=== PATIENT | female | born 1960 | race Caucasian/White ===

== ENCOUNTER → 2017-11-03 | Outpatient (CLI) | payer OTHER ==
[~2017-11-03] MED LIST: ALPR0.5T3 PO; ATEN50TA PO; CYCL10TA PO; ENAL20TA PO; ENBR50IN2 SQ; HYDR-3583 PO; HYDR25TA5 PO; HYOS1TAB9 PO; MELO15TA20 PO; METH2.5T PO; OXYC1TAB36 PO; PANT40TA3 PO; PRED20 PO; PRED5TAB PO; TEMA30CA PO; TRAM50TA PO; WALKER WHEELS/F1 MIS
== END ==
LOC: CPRE 10:01
PROVIDERS: ATTEND Neurological Surgery
DX: Z01.812 Encounter for preprocedural laboratory examination (principal); M43.10 Spondylolisthesis, site unspecified
CPT/HCPCS: 87640; 87641

== ENCOUNTER 2017-11-05 06:41 | Inpatient (IN) | payer OTHER ==
[~2017-11-05] VITALS: Ht 170.2 cm; Wt 103.6 kg
[~2017-11-05 06:41] MED LIST changes: -HYDR-3583 PO; -PRED5TAB PO; -WALKER WHEELS/F1 MIS
[2017-11-05] MEDS ORDERED: VANCOMYCIN HCL 1000 MG VIAL ONE (07:07)
[2017-11-05] MEDS ORDERED: GELFOAM SIZE 100 ONE (07:08)
[2017-11-05] MEDS ORDERED: BUPIVACAINE/EPINEPHRINE 0.5% PF 10 ML VIAL ONE (07:08)
[2017-11-05] MEDS ORDERED: GENTAMICIN SULFATE 80 MG/2 ML VIAL ONE (07:08)
[2017-11-05] MEDS ORDERED: THROMBIN (TOPICAL) 5,000 UNIT VIAL ONE (07:08)
[2017-11-05] MEDS ORDERED: ceFAZolin 2 GM PREMIX 50 ML ONE (07:08)
[2017-11-05] MEDS ORDERED: METOPROLOL TARTRATE 25 MG TAB PO PRN (07:15)
[2017-11-05] MEDS ORDERED: POVIDONE IODINE 5% (ANTISEPSIS KIT) 4 APPLICATIONS EACH NARE PRN (07:15)
[2017-11-05] MEDS ORDERED: LACTATED RINGER'S 1000 ML IV PRN (07:15)
[2017-11-05] MEDS ORDERED: SODIUM CHLORID 0.9% 500 ML IV PRN (07:15)
[2017-11-05] MEDS ORDERED: CHLORHEXIDINE GLUCONATE 2 % 1 PACK (2 CLOTHS) TOPICAL PRN (07:15)
[2017-11-05] MEDS ORDERED: VANCOMYCIN 1 GM/200 ML PREMIX ON-CALL IV SCH (07:15)
[2017-11-05] MEDS ORDERED: ACETAMINOPHEN 1000 MG/100 ML 100 ML IV ONE (07:28)
[2017-11-05] MEDS ORDERED: PROPOFOL 500 MG/50 ML INJ 150 ML ONE ×2 (07:29→11:12)
[2017-11-05] MEDS ORDERED: ARTIFICIAL TEARS OPTH OINT 3.5 APPLIC/3.5 GM TUBO ONE (07:29)
[2017-11-05] MEDS ORDERED: ATEN50TA PO (07:33)
[2017-11-05] MEDS ORDERED: APREPITANT 40 MG CAP ONE (07:50)
[2017-11-05] MEDS ORDERED: FAMOTIDINE 20 MG/2 ML VIAL ONE (07:50)
[2017-11-05] MEDS ORDERED: KETAMINE HCL 500 MG/10 ML VIAL ONE (08:05)
[2017-11-05] MEDS ORDERED: MIDAZOLAM HCL 2 MG/2 ML VIAL ONE ×2 (08:37→13:49)
[2017-11-05] MEDS ORDERED: methylPREDNISolone SOD SUCC 125 MG/2 ML VIAL ONE (09:26)
[2017-11-05] MEDS ORDERED: fentaNYL CITRATE 250 MCG/5 ML AMP ONE (11:11)
[2017-11-05] MEDS ORDERED: HYDROmorphone HCL PF 2 MG/ML VIAL ONE (11:19)
[2017-11-05] MEDS ORDERED: PROPOFOL 200 MG/20 ML AMP IV ONE (12:00)
[2017-11-05] MEDS ORDERED: ONDANSETRON HCL 4 MG/2 ML VIAL IV PUSH ONE (12:00)
[2017-11-05] MEDS ORDERED: ROCURONIUM INJ 50 MG/5 ML SYRINGE IV PUSH ONE (12:00)
[2017-11-05] MEDS ORDERED: LIDOCAINE HCL 1% PF 5 ML SYRINGE OTHER ONE (12:00)
[2017-11-05] MEDS ORDERED: ePHEDrine/NS 25 MG/5 ML SYRINGE IV ONE (12:00)
[2017-11-05] MEDS ORDERED: PHENYLEPH/NS 1000 MCG/10 ML SYR IV ONE (12:00)
[2017-11-05] MEDS ORDERED: LACTATED RINGER'S 1000 ML INJ 3,000 ML IV ONE (12:00)
[2017-11-05] MEDS ORDERED: GLYCOPYRROLATE 1 MG/5 ML SYRINGE IV PUSH ONE (12:00)
[2017-11-05] MEDS ORDERED: ALPRAZolam 0.5 MG TAB PO PRN (12:45)
[2017-11-05] MEDS ORDERED: DEXTROSE 50% IN WATER 50 ML VIAL(D50) IV PUSH PRN (12:45)
[2017-11-05] MEDS ORDERED: diphenhydrAMINE HCL 50 MG/ML VIAL IV PUSH PRN (12:45)
[2017-11-05] MEDS ORDERED: RESP: ALBUTEROL 2.5 MG/3 ML NEB (PRN) INH (12:45)
[2017-11-05] MEDS ORDERED: GLUCAGON 1 MG/ML VIAL OTHER PRN (12:45)
[2017-11-05] MEDS ORDERED: cloNIDine HCL 0.1 MG TAB PO/NG PRN (12:45)
[2017-11-05] MEDS ORDERED: ACETAMINOPHEN 325 MG TAB PO PRN (12:45)
[2017-11-05] MEDS ORDERED: MAGNESIUM HYDROXIDE SUSP 30 ML CUP PO PRN (12:45)
[2017-11-05] MEDS ORDERED: MORPHINE SULFATE 4 MG/ML INJ IV PUSH PRN (12:45)
[2017-11-05] MEDS ORDERED: MENTHOL LOZENGE BUCCAL PRN (12:45)
[2017-11-05] MEDS ORDERED: BISACODYL 10 MG SUPP RECTAL PRN (12:45)
[2017-11-05] MEDS ORDERED: NALOXONE HCL 0.4 MG/ML AMP IV PUSH PRN (12:45)
[2017-11-05] MEDS ORDERED: DO NOT ADM ANY ANTICOAGULANT DRUGS PRN (13:09)
[2017-11-05] MEDS ORDERED: *morphine SULFATE 4 MG/ML PERIprocedure ONLY ONE ×2 (13:40→13:46)
--- NOTE | 2017-11-05 13:52 | PD.OP ---
Operative Report Date of Surgery: November 05, 2017 Preoperative Diagnosis: L4-5 spondylolisthesis Postoperative Diagnosis: L4-5 spondylolisthesis Procedure: L4-5 laminectomy, interbody arthrodhesis using PEEK cage and autologous bone graft, L4-5 instrumental fixation using transpedicular screws and rods, L4-5 posterolateral fusion using autologous bone graft and rods. Microsurgical dissection Anesthesia: general Surgeon: Favio Lopez Wireless Technician(s): Ana Rueda Operation and Findings: INDICATIONS FOR THE SURGICAL PROCEDURE Ms Linder is a 57 year-old female who presented with intractable mechanical back pain and luz evidence of L5 lower extremity radiculopathy. She failed maximum nonsurgical management including multiple modalities of conservative treatment as well as pain management interventions by an interventional pain specialist. A surgical decompression and arthrodhesis were indicated as a last resort. The [id number] details of the procedure, indications, alternatives, risks and potential complications were fully discussed with the patient. The patient fully understood. All the questions were answered. No guarantees were given. The patient voiced requesting the procedure and provided informed consents. The patient was offered the alternative of delaying the procedure and continuing with nonsurgical management. DETAILS OF THE SURGICAL PROCEDURE Prior to the procedure, the surgical incision was marked in the preoperative surgical holding room, and the procedure, risks, and potential complications revisited with the patient. Placement of electrodes for intraoperative neurophysiological monitoring was completed. The patient was taken to the operative room, and following induction of general anesthesia, endotracheal intubation was performed. A Chaudhry catheter, bilateral ADITYA hose and sequential compression devices were placed and kept throughout the procedure. The patient was positioned prone, over a Christian table over a Gerardo frame. All pressure in the preoperative surgical holding room points were carefully padded with eggcrate and gel mattress. The eyes were tapped shut after ointment was applied by the anesthesiologist to prevent corneal abrasion. A Jesus Manuel hugger was placed over the exposed lower body to maintain control of the core body temperature. The electrophysiological team placed the needles and electrodes in their proper location and baseline SSEP's and motor evoked potentials were registered prior and following the positioning. The entrance to each pedicles was marked using a C arm. The lumbar region was prepped and draped in the usual sterile fashion. The surgical procedure was performed in several steps as follow: SURGICAL APPROACH Once the patient was positioned, a localizing cross-table lateral x-ray was performed with a C-arm. Two paramedian small incisions were outlined on the skin approximately 3cm from the midline. The skin incisions were made with a # 10 blade. Small bleeders were controlled with the cautery. The dissection was then carried out into deper planes and through the thoracolumbar fascia with a Bovie. The intermuscular septum was identified and the muscles were blunted dissected along the septum. The facets and transverse process of L4 and L5 were exposed and the proper anatomical landmarks were identified. A microsurgical self-retaining retractor was placed on the incision, and a localizing lateralizing cross-table x-ray was performed with an instrument underneath a lamina of the lumbar spine. There was a bilateral pars defect with gross instability of the bony structures. INSTRUMENTAL FIXATION At this point in the procedure, placement of bilateral transpedicular screws was necessary for stabilization of the spine. Initially, the entry point for the screw was selected anatomically at the junction of the facet, with the transverse process, and the pars interarticularis at L5 and at the sacrum. This was started with a Giamshetti needle, followed by the use of an dunlap wire, and then a tap was used to create the threads for the screws. Finally bilateral transpedicular screws were carefully placed bilaterally at L4 and L5 under fluoroscopic visualization. An appropriate purchase was achieved with all screws. The position of each screw was assessed anatomically with an AP, lateral , oblique Xrays. An intraoperative scan view of the spine was then performed using the iso-centric c-arm. Each screw was then assessed electrophysiologically with a nerve stimulator. SURGICAL DECOMPRESSION There was significant mass effect with compression of the neural structures. In order to relieve neural compression, it was necessary to perform a decompressive laminectomy, with decompression of the spinal canal and bilateral lateral recesses. Note that the scope of such decompression was significantly more extensive than the minimal exposure necessary to perform an interbody fusion, as there was extreme facet arthropathy with near complete collapse of the disk spaces and severe stenosis cause by the hyperthrophic joint facets. At this point of the procedure the operative microscope was draped in the usual sterile fashion and brought to the field. The rest of the surgical procedure was performed using microdissection technique with the exception of the closure. Under the operating microscope, a decompressive laminectomy was carried out at L4-5 as follow: The laminae, base of the spinous processes and facets were carefully drilled exposing the ligamentum flavum. The facets were abnormal with severe facet arthropathy, vacuum facets, and mass effect over the neural structures. A broad disk protusion was contributing to compression of the neural structures and exiting L5 nerve root. A near complete facetectomy was necessary resulting in further mechanical instability. The ligamentum flavum appeared hypertrophic, resulting on mass effect on the dorsal surface of the neural structures. The superior free border of the ligamentum flavum was elevated with a ligament dissector and the ligamentum flavum was removed with a 3 and 4 mm Kerrison forceps. The ligament was very adherent to the dural sac and during the dissection, ans extreme care was taken during the dissection. The exiting nerve roots were identified, and a wide foraminotomy was performed with a Kerrison in their trajectory towards the neural foramenat both levels. Epidural veins located laterally to the dural sac were coagulated with the bipolar cautery, and then incised using microscissors. Gentle medial retraction of the dural sac allowed me to expose the disc space for the discectomy. Upon completion of the discectomy, an excellent decompression of the neural structures was achieved. INTERBODY ARTHRODHESIS In order to correct the narrowing of the disk space and maintain distraction of the space, and to achieve a solid interbody fusion, it was necessary the insertion of an interbody device into the disk space. Otherwise, the disk space would collapse, compromising the result of the surgical procedure. At this point of the procedure, the annulus fibrosus of the disk was carefully coagulated with a bipolar cautery and incised using an 11 bladed knife. Then, a microdiscectomy was carried out in a standard fashion using a combination of straight and up-biting pituitary forceps. A reverse angle curette was applied underneath the posterior longitudinal ligament, and used to push the disk fragments into the disk space, so they can be safely removed with a pituitary forceps. Once the discectomy was completed, it was necessary to decorticate the endplates, in order to eliminate the cartilaginous endplate and to expose healthy bone appropriate to perform the interbody fusion. The endplates at L4-5 were then thoroughly decorticated using increasing size bone sumeet and ring curets, eliminating the cartilaginous fragments from both, the superior and inferior endplates. A disk space distractor was applied to the pedicle screws and gentle distraction was applied. This maneuver was assisted by the use of a disk distractor. Once a thorough preparation of the disk space was achieved, the disk space was irrigated with antibiotic solution, and the interbody fusion was performed by carefully impacting expandable PPEK cage filled with autologous iliac crest bone graft. The cage was packed with further bone graft by the use of a funnel. A solid position of the cage with good purchase was achieved at both levels. The position of the cages were assessed anatomically with a probe and radiologically with the C-arm. POSTEROLATERAL FUSION The posterolateral fusion is a critical component to the procedure, to prevent future fatigue and failure of the instrumental fixation. Initially, the transverse processes of the vertebral bodies, lateral surface of the facets and the lateral gutters of the spine were carefully cleaned, eliminating all soft tissue and muscle attachments. The area was then irrigated with a large amount of antibiotic solution. Subsequently, the transverse processes, lateral surface of the facets, and lateral gutters of the spine were thoroughly decorticated using the TPS drill with a 5mm cutting karly, exposing cancellous bone, in preparation for the posterolateral fusion. The incision was again irrigated with antibiotic solution. Then, the posterolateral fusion was then performed by carefully packing the lateral gutters of the spine at L4-5 with autologous bone combined with demineralized bone matrix. I packed as much bone as possible. COMPLETION OF THE INSTRUMENTATION AND CLOSURE The rods were brought to the field, applied to all the screws, and the screw caps were sequentially applied. Compression was performed between the pedicle screws, and final tightening of the screws was completed using a torque wrench The incision was again thoroughly irrigated with several liters of antibiotic solution, and hemostasis secured with the bipolar cautery. A Valsalva Maneuver performed by the anesthesiologist failed to show any evidence of cerebrospinal fluid leak or bleeding. A 7 mm Christian-Anderson drain was left in the epidural space and externalized through a separate stab incision. The incision was then closed in planes. 0 Vicryl was used in an interrupted fashion to close the thoracolumbar fascia and the superficial fascia. The subcutaneous tissue was then approximated using 3-0 Vicryl in an interrupted fashion. Special care was taken to avoid space. The skin was then closed with 4-0 Vicryl in a running, subcuticular fashion. Dermabond was applied to the skin. Each plane of closure was irrigated with antibiotic solution. At the end of the procedure the sponge, needle and instrument counts were all correct. Estimated blood loss was 150 cc or less. No blood transfusion was given. The entire procedure was performed using continuous electrophysiological monitoring of the somatosensorial evoked potentials and EMG. The patient received prophylactic antibiotics. The patient was then extubated and transferred to the recovery room in stable condition. Favio Lopez MD November 05, 2017 13:52
[2017-11-05] MEDS: PCA - TOTAL MG DILAUDID DELIVERED PER SHIFT SCH ×2 (14:00→22:00)
[2017-11-05] MEDS: SODIUM CHLOR 0.9% 1000 ML INJ 1,000 ML IV SCH (14:00)
[2017-11-05] MEDS: HYDROmorphone HCL PCA 6 MG/30 ML IV SCH ×2 (14:14→20:29)
[2017-11-05 16:27] VITALS: BP 157/74; PULSE 85; RESP 17; TEMP 97.2; O2SAT 99
[2017-11-05] MEDS ORDERED: HYDR-3583 PO (16:47)
[2017-11-05 17:00] VITALS: BP 109/56; PULSE 91; RESP 18; TEMP 98.4; O2SAT 96
[2017-11-05] MEDS: INSULIN ASPART SUPPLEMENTAL SCALE SQ SCH ×2 (17:00→21:00)
[2017-11-05] MEDS: HYOSCYAMINE 0.125 MG TAB PO SCH ×2 (18:04→23:31)
[2017-11-05] MEDS: ceFAZolin 2 GM PREMIX 50 ML IV SCH (18:04)
--- NOTE | 2017-11-05 19:32 | RADRPT ---
EXAM DATE: 11/05/2017 6:22 PM EDT AGE/SEX: 57 years / Female INDICATIONS: Fusion L4,L5 with screw and cris placement. CLINICAL DATA: This is the patient's initial encounter. Patient reports that signs and symptoms have been present for 1 day and indicates a pain score of Nonresponsive. MEDICAL/SURGICAL HISTORY: None. None. COMPARISON: No prior [place] exams available for comparison. FINDINGS: There is transpedicular screw and cris fixation across L4-5 with drain present on the left. Disc space r present. Minimal anterolisthesis of L4 on L5. CONCLUSION: Lumbar fusion at L4-5 as above. Electronically signed by: Olivier Pitt MD 11/05/2017 7:30 PM EDT
[2017-11-05] MEDS: DOCUSATE SODIUM 100 MG CAP PO SCH (20:19)
[2017-11-05] MEDS: ATENOLOL 50 MG TAB PO SCH (20:19)
[2017-11-05] MEDS: ACETAMINOPHEN/HYDROcodone 325 MG/10 MG TAB PO PRN (23:32)
[2017-11-05] MEDS: CHLORHEXIDINE GLUCONATE 4% SOLN 120 ML BTL TOP SCH (23:43)
[2017-11-06] VITALS: BP 117/60; PULSE 89; RESP 18; TEMP 97.9; O2SAT 95
[2017-11-06] MEDS: ceFAZolin 2 GM PREMIX 50 ML IV SCH ×2 (00:12→09:50)
[2017-11-06] MEDS: TEMAZEPAM 15 MG CAP PO PRN (00:12)
[2017-11-06] MEDS: SODIUM CHLOR 0.9% 1000 ML INJ 1,000 ML IV SCH ×3 (01:18→23:58)
[2017-11-06 04:00] VITALS: BP 121/59; PULSE 84; RESP 20; TEMP 97.9; O2SAT 98
[2017-11-06] MEDS: HYDROmorphone HCL PCA 6 MG/30 ML IV SCH ×2 (04:39→18:00)
[2017-11-06] MEDS: PCA - TOTAL MG DILAUDID DELIVERED PER SHIFT SCH ×2 (06:00→14:00)
[2017-11-06] MEDS: HYOSCYAMINE 0.125 MG TAB PO SCH ×3 (06:28→17:06)
[2017-11-06] MEDS: ACETAMINOPHEN/HYDROcodone 325 MG/10 MG TAB PO PRN ×3 (06:29→20:22)
[2017-11-06 07:13] LABS: AUTOMATED NEUTROPHIL # 10.8 TH/MM3 (1.8-7.7); BASOPHIL % 0.1 % (0.0-2.0); HEMATOCRIT 32.9 % (35.0-46.0); LYMPH % 8.1 % (9.0-44.0); MEAN CORPUSCULAR HEMOGLOBIN 31.7 PG (27.0-34.0); MEAN CORPUSCULAR HGB CONC 33.4 % (32.0-36.0); MEAN PLATELET VOLUME 10.3 FL (7.0-11.0); MONO % 8.2 % (0.0-8.0); MONOCYTE # 1.1 TH/MM3 (0-0.9); NEUT % 83.6 % (16.0-70.0); PLATELET COUNT 205 TH/MM3 (150-450); RED BLOOD COUNT 3.46 MIL/MM3 (4.00-5.30); RED CELL DISTRIBUTION WIDTH 14.2 % (11.6-17.2); WHITE BLOOD COUNT 12.9 TH/MM3 (4.0-11.0)
[2017-11-06 07:40] LABS: BICARBONATE 28.5 MEQ/L (21.0-32.0); CALCIUM 8.2 MG/DL (8.5-10.1); CREATININE 1.05 MG/DL (0.50-1.00)
[2017-11-06 08:00] VITALS: BP 122/58; PULSE 78; RESP 20; TEMP 97.4; O2SAT 95
[2017-11-06] MEDS: INSULIN ASPART SUPPLEMENTAL SCALE SQ SCH ×4 (08:00→21:00)
[2017-11-06] MEDS: predniSONE 20 MG TAB PO SCH (09:00)
[2017-11-06] MEDS ORDERED: ENBREL 50 MG SQ SCH (09:00)
[2017-11-06] MEDS ORDERED: METHOTREXATE 2.5 MG TAB PO SCH (09:00)
--- NOTE | 2017-11-06 09:19 | PD.CONS ---
HPI Service [facility] Hospitalists Consult Requested By Dr. Lopez Reason for Consult Post-operative medical management Primary Care Physician Madina Hernandez M.D. Diagnoses: History of Present Illness This is a 57 year old female patient with a past medical history which includes psoriatic arthroplathy, lumbar radiculopathy with lower back pain, hypertension , GERD, gouty arthritis, irritable bowel syndrome and L4-5 spondylolisthesis. Patient is status post L4-5 laminectomy, interbody arthrodhesis using PEEK cage and autologous bone graft, L4-5 instrumental fixation using transpedicular screws and rods, L4-5 posterolateral fusion using autologous bone graft and rods. Microsurgical dissection with Dr. Lopez on 11/05/2017. We have been consulted for assistance with postoperative medical management. Patient evaluated reports feeling well at this time has minimal postoperative pain. Patient denies nausea vomiting diarrhea constipation fevers chills cough congestion shortness of breath or chest pain. Review of Systems Musculoskeletal: COMPLAINS OF: Muscle aches, Back pain (Post- operative) Past Family Social History Past Medical History psoriatic arthroplathy, lumbar radiculopathy with lower back pain, hypertension , GERD, gouty arthritis, irritable bowel syndrome and L4-5 spondylolisthesis Past Surgical History Cholecystectomy, colonoscopy, EGD, hysterectomy, oophorectomy, tonsillectomy Reported Medications Hydrocodone-Acetamin 10-325 mg (Hydrocodone/Acetaminophen) 10 Mg-325 Mg Tablet 1 Tab PO Q4H PRN Atenolol 50 Mg Tab 50 Mg PO BID Pantoprazole (Pantoprazole Sodium) 40 Mg Tab 40 Mg PO DAILY Oxycodone-Acetaminophen 10-325 mg Tab 1 Tab PO Q4H PRN Methotrexate 2.5 Mg Tab 2.5 Mg PO Q7D Tramadol (Tramadol HCl) 50 Mg Tab 50 Mg PO Q6H PRN Temazepam 30 Mg Cap 30 Mg PO HS PRN Prednisone 20 Mg Tab 20 Mg PO DAILY Meloxicam 15 Mg Tab 15 Mg PO DAILY Hyoscyamine (Hyoscyamine Sulfate) 0.125 Mg Tab 0.125 Mg PO Q6H Hydrochlorothiazide 25 Mg Tab 25 Mg PO DAILY Flexeril (Cyclobenzaprine HCl) 10 Mg Tab 10 Mg PO TID Enbrel PF Inj (Etanercept) 50 mg/ml Syr 50 Mg SQ Q7D Enalapril (Enalapril Maleate) 20 Mg Tab 20 Mg PO DAILY Alprazolam 0.5 Mg Tab 0.5 Mg PO Q6H PRN Allergies: Coded Allergies: diclofenac (Verified Adverse Reaction, Severe, NAUSEA, 11/03/17) erythromycin base (Verified Adverse Reaction, Unknown, NAUSEA, 11/03/17) Family History Noncontributory Social History Occasional EtOH use Former tobacco user Denies illicit drug use Physical Exam Vital Signs Vital Signs Date Time Temp Pulse Resp B/P (MAP) Pulse Ox O2 Delivery O2 Flow Rate FiO2 11/06/17 06:00 16 11/06/17 04:39 16 11/06/17 04:00 97.9 84 20 121/59 (79) 98 11/06/17 00:00 97.9 89 18 117/60 (79) 95 11/05/17 22:00 16 11/05/17 20:29 16 11/05/17 17:00 98.4 91 18 109/56 (73) 96 11/05/17 16:27 97.2 85 17 157/74 (101) 99 11/05/17 14:28 97.4 73 15 149/72 (97) 99 Nasal Cannula 3 11/05/17 14:15 74 15 132/60 (84) 99 Nasal Cannula 3 11/05/17 14:14 15 11/05/17 14:00 76 16 134/65 (88) 99 Nasal Cannula 3 11/05/17 13:45 82 17 130/58 (82) 95 Nasal Cannula 3 11/05/17 13:30 80 17 142/63 (89) 95 Nasal Cannula 3 11/05/17 13:15 77 15 138/64 (88) 100 Nasal Cannula 3 11/05/17 13:10 97.9 83 15 132/66 (88) 100 Nasal Cannula 4 Physical Exam GENERAL: This is a obese female patient, well-developed patient, in no apparent distress. SKIN: No rashes, ecchymoses or lesions. Cool and dry. HEAD: Atraumatic. Normocephalic. No temporal or scalp tenderness. EYES: Extraocular motions intact. No scleral icterus. No injection or drainage. CARDIOVASCULAR: Regular rate and rhythm RESPIRATORY: Clear to auscultation. Breath sounds equal bilaterally. GASTROINTESTINAL: Abdomen soft, non-tender, nondistended. MUSCULOSKELETAL: Extremities without clubbing, cyanosis, or edema. No joint tenderness, effusion, or edema noted. No calf tenderness. Negative Homans sign bilaterally. NEUROLOGICAL: Awake and alert. No focal deficits. Motor and sensory grossly within normal limits. Five out of 5 muscle strength in all muscle groups. Normal speech. Laboratory Laboratory Tests Test 11/06/17 06:00 White Blood Count 12.9 Red Blood Count 3.46 Hemoglobin 11.0 Hematocrit 32.9 Mean Corpuscular Volume 95.0 Mean Corpuscular Hemoglobin 31.7 Mean Corpuscular Hemoglobin Concent 33.4 Red Cell Distribution Width 14.2 Platelet Count 205 Mean Platelet Volume 10.3 Neutrophils (%) (Auto) 83.6 Lymphocytes (%) (Auto) 8.1 Monocytes (%) (Auto) 8.2 Eosinophils (%) (Auto) 0.0 Basophils (%) (Auto) 0.1 Neutrophils # (Auto) 10.8 Lymphocytes # (Auto) 1.0 Monocytes # (Auto) 1.1 Eosinophils # (Auto) 0.0 Basophils # (Auto) 0.0 CBC Comment DIFF FINAL Differential Comment Blood Urea Nitrogen 14 Creatinine 1.05 Random Glucose 112 Calcium Level 8.2 Sodium Level 141 Potassium Level 4.2 Chloride Level 104 Carbon Dioxide Level 28.5 Anion Gap 9 Estimat Glomerular Filtration Rate 54 Result Diagram: 11/06/17 0600 11/06/17 0600 Imaging Last Impressions Lumbar Spine X-Ray 11/05/17 0000 Signed Impressions: CONCLUSION: Lumbar fusion at L4-5 as above. Assessment and Plan Problem List: (1) Spondylolisthesis at L4-L5 level ICD Codes: M43.16 - Spondylolisthesis, lumbar region Plan: - Status post L4-5 laminectomy, interbody arthrodhesis using PEEK cage and autologous bone graft, L4-5 instrumental fixation using transpedicular screws and rods, L4-5 posterolateral fusion using autologous bone graft and rods. Microsurgical dissection with Dr. Lopez on 11/05/2017 -Postoperative management per neurosurgery Dr. Lopez -DVT prophylaxis with SCDs (2) Hypertension ICD Codes: I10 - Essential (primary) hypertension Plan: - Continue patient's home atenolol 50 mg twice daily, enalapril 20 mg daily, hydrochlorothiazide 25 mg daily - Monitor blood pressure trend (3) Psoriatic arthropathy ICD Codes: L40.50 - Arthropathic psoriasis, unspecified Plan: -Continue patient's home methotrexate and prednisone 20 mg p.o. daily -add folic acid daily (4) GERD (gastroesophageal reflux disease) ICD Codes: K21.9 - Gastro-esophageal reflux disease without esophagitis Plan: -Patient on Protonix 40 mg daily Assessment and Plan Patient examined. Assessment and plan formulated with Hoa Morales PA-C. I agree with the above. Hoa Morales November 06, 2017 09:18 Jose Lr DO November 07, 2017 23:34
[2017-11-06] MEDS: ATENOLOL 50 MG TAB PO SCH ×2 (09:50→20:22)
[2017-11-06] MEDS: PANTOPRAZOLE SOD 40 MG DELAYED RELEASE TAB PO SCH (09:50)
[2017-11-06] MEDS: DOCUSATE SODIUM 100 MG CAP PO SCH ×2 (09:50→20:22)
[2017-11-06] MEDS: HYDROCHLOROTHIAZIDE 25 MG TAB PO SCH (09:51)
[2017-11-06] MEDS: ENALAPRIL MALEATE 10 MG TAB PO SCH (09:51)
[2017-11-06 12:00] VITALS: BP 114/56; PULSE 81; RESP 18; TEMP 97.7; O2SAT 95
--- NOTE | 2017-11-06 15:42 | HHI.NSPN ---
History Chief Complaint: Low back pain. Interval History 11/05: Patient presented to [facility] to have an L4-5 laminectomy with interbody arthrodhesis using a PEEK cage, instrumental fixation using transpedicular screws and rods,and posterolateral fusion using bone graft and rods. Post-operatively the patient was admitted to a regular med/surg floor. 11/06: This afternoon the patient is awake and alert when seen. She is laying in bed with the LSO brace on. She says that she does have low back pain that is a little better than yesterday. She reports not being able to lift her pelvis/ hips off the bed. She denies any pain, numbness or tingling to the lower extremities. She has no sensorimotor deficits noted upon examination but she does have tenderness just above the anterior ankles bilaterally. Her midline lower lumbar spine is tender to palpation. She does say she has stood once but not ambulated. Exam Results 11/04/17 11/04/17 11/05/17 11/05/17 11/06/17 11/06/17 06:00 18:00 06:00 18:00 06:00 18:00 Intake Total 2300 ml 650 ml Output Total 680 ml Balance 1620 ml 650 ml Intake Oral 600 ml IV Total 100 ml 50 ml Other 2200 ml Output Urine Total 500 ml Estimated Blood Loss 180 ml # Voids 3 # Bowel Movements 0 Vital Signs Date Time Temp Pulse Resp B/P (MAP) Pulse Ox O2 Delivery O2 Flow Rate FiO2 11/06/17 14:00 18 11/06/17 13:05 18 11/06/17 08:00 97.4 78 20 122/58 (79) 95 11/06/17 06:00 16 11/06/17 04:39 16 11/06/17 04:00 97.9 84 20 121/59 (79) 98 11/06/17 00:00 97.9 89 18 117/60 (79) 95 11/05/17 22:00 16 11/05/17 20:29 16 11/05/17 17:00 98.4 91 18 109/56 (73) 96 11/05/17 16:27 97.2 85 17 157/74 (101) 99 11/05/17 14:28 97.4 73 15 149/72 (97) 99 Nasal Cannula 3 11/05/17 14:15 74 15 132/60 (84) 99 Nasal Cannula 3 11/05/17 14:14 15 11/05/17 14:00 76 16 134/65 (88) 99 Nasal Cannula 3 11/05/17 13:45 82 17 130/58 (82) 95 Nasal Cannula 3 11/05/17 13:30 80 17 142/63 (89) 95 Nasal Cannula 3 11/05/17 13:15 77 15 138/64 (88) 100 Nasal Cannula 3 11/05/17 13:10 97.9 83 15 132/66 (88) 100 Nasal Cannula 4 11/05/17 07:43 97.0 73 16 129/83 (98) 98 Physical Examination GENERAL: Awake & alert in bed visiting w/a friend & watching TV. Her affect is normal & she readily interacts. She appears mildly uncomfortable but not in any distress. HEENT: Normocephalic, atraumatic. MUSCULOSKELETAL: In LSO brace. TALYOR spontaneously & purposefully. Superior right anterior ankle mildly TTP. Superior left anterolateral & anteromedial ankle TTP. Lumbar spine TTP midline and along paraspinals, the dressing is dry & intact, the MAKENNA drain is to bulb suction w/serosanguinous drainage. NEUROLOGICAL: AAOx3. Speech clear & appropriate. Follows simple commands w/o difficulty. Sensation intact to light touch to the lower extremities. Motor strength is 5/5 to all major flexion & extension muscle groups of the lower extremities. She does have some referred low back pain w/testing. Lab, Micro, Other Results Recent Impressions Lumbar Spine X-Ray 11/05/17 0000 Signed Impressions: CONCLUSION: Lumbar fusion at L4-5 as above. Laboratory Tests Test 11/06/17 06:00 White Blood Count 12.9 TH/MM3 Red Blood Count 3.46 MIL/MM3 Hemoglobin 11.0 GM/DL Hematocrit 32.9 % Mean Corpuscular Volume 95.0 FL Mean Corpuscular Hemoglobin 31.7 PG Mean Corpuscular Hemoglobin Concent 33.4 % Red Cell Distribution Width 14.2 % Platelet Count 205 TH/MM3 Mean Platelet Volume 10.3 FL Neutrophils (%) (Auto) 83.6 % Lymphocytes (%) (Auto) 8.1 % Monocytes (%) (Auto) 8.2 % Eosinophils (%) (Auto) 0.0 % Basophils (%) (Auto) 0.1 % Neutrophils # (Auto) 10.8 TH/MM3 Lymphocytes # (Auto) 1.0 TH/MM3 Monocytes # (Auto) 1.1 TH/MM3 Eosinophils # (Auto) 0.0 TH/MM3 Basophils # (Auto) 0.0 TH/MM3 CBC Comment DIFF FINAL Differential Comment Blood Urea Nitrogen 14 MG/DL Creatinine 1.05 MG/DL Random Glucose 112 MG/DL Calcium Level 8.2 MG/DL Sodium Level 141 MEQ/L Potassium Level 4.2 MEQ/L Chloride Level 104 MEQ/L Carbon Dioxide Level 28.5 MEQ/L Anion Gap 9 MEQ/L Estimat Glomerular Filtration Rate 54 ML/MIN Medical Decision Making Impression and Plan Impression: L4-5 spondylolisthesis S/p L4-5 PLIF The patient is doing fair. She is having low back pain and difficulty adjusting herself in bed. No sensorimotor deficits noted. Nursing reports 30 mL drainage out from the MAKENNA drain for her earlier. Reviewed labs for today. Leukocytosis most likely inflammatory response to surgery. eGFR 54. Plan: Medical management per Hospitalist. Neuro checks q4h. VS q4h. LSO brace when OOB. Mobilise patient w/assistance. Physical Therapy eval & tx. Turn patient q2h, keep patient from laying on surgical incision. Keep Optifoam dressing in place x7d, if saturated replace w/same. Plan to take out the Chaudhry tomorrow once patient has been able to get up and ambulate. Moris PfeifferP November 06, 2017 15:42
[2017-11-06 16:00] VITALS: BP 124/66; PULSE 70; RESP 18; TEMP 97.9; O2SAT 98
[2017-11-06] MEDS: ONDANSETRON ODT 4 MG TAB PO PRN (17:06)
[2017-11-06 20:15] VITALS: BP 132/62; PULSE 74; RESP 17; TEMP 97.7; O2SAT 94
[2017-11-06] MEDS: CHLORHEXIDINE GLUCONATE 4% SOLN 120 ML BTL TOP SCH (21:00)
[2017-11-07 00:05] VITALS: BP 109/57; PULSE 70; RESP 17; TEMP 97.3; O2SAT 98
[2017-11-07] MEDS: TEMAZEPAM 15 MG CAP PO PRN (00:08)
[2017-11-07] MEDS: HYOSCYAMINE 0.125 MG TAB PO SCH ×5 (00:08→22:50)
[2017-11-07 04:15] VITALS: BP 100/57; PULSE 69; RESP 17; TEMP 97.6; O2SAT 95
[2017-11-07] MEDS: PCA - TOTAL MG DILAUDID DELIVERED PER SHIFT SCH ×3 (06:00→22:00)
[2017-11-07] MEDS: HYDROmorphone HCL PCA 6 MG/30 ML IV SCH ×3 (07:42→22:59)
[2017-11-07 08:00] VITALS: BP 113/56; PULSE 72; RESP 17; TEMP 98.4; O2SAT 97
[2017-11-07] MEDS: INSULIN ASPART SUPPLEMENTAL SCALE SQ SCH ×4 (08:00→21:00)
[2017-11-07] MEDS: predniSONE 20 MG TAB PO SCH (09:00)
[2017-11-07] MEDS: ACETAMINOPHEN/HYDROcodone 325 MG/10 MG TAB PO PRN ×3 (10:12→22:50)
[2017-11-07] MEDS: DOCUSATE SODIUM 100 MG CAP PO SCH ×2 (10:15→22:49)
[2017-11-07] MEDS: ATENOLOL 50 MG TAB PO SCH ×2 (10:15→22:50)
[2017-11-07] MEDS: ENALAPRIL MALEATE 10 MG TAB PO SCH (10:16)
[2017-11-07] MEDS: HYDROCHLOROTHIAZIDE 25 MG TAB PO SCH (10:16)
[2017-11-07] MEDS: PANTOPRAZOLE SOD 40 MG DELAYED RELEASE TAB PO SCH (10:16)
[2017-11-07] MEDS: FOLIC ACID 1 MG TAB PO SCH (10:17)
[2017-11-07 12:00] VITALS: BP 106/58; PULSE 67; RESP 17; TEMP 97.6; O2SAT 95
[2017-11-07] MEDS: SODIUM CHLOR 0.9% 1000 ML INJ 1,000 ML IV SCH ×2 (12:18→16:00)
--- NOTE | 2017-11-07 15:13 | HHI.NSPN ---
History Chief Complaint: Back pain at surgical sites. Interval History 11/05: Patient presented to [facility] to have an L4-5 laminectomy with interbody arthrodhesis using a PEEK cage, instrumental fixation using transpedicular screws and rods,and posterolateral fusion using bone graft and rods. Post-operatively the patient was admitted to a regular med/surg floor. 11/06: This afternoon the patient is awake and alert when seen. She is laying in bed with the LSO brace on. She says that she does have low back pain that is a little better than yesterday. She reports not being able to lift her pelvis/ hips off the bed. She denies any pain, numbness or tingling to the lower extremities. She has no sensorimotor deficits noted upon examination but she does have tenderness just above the anterior ankles bilaterally. Her midline lower lumbar spine is tender to palpation. She does say she has stood once but not ambulated. 11/07: When seen this afternoon the patient is awake in bed watching TV and visiting with her family. She states that she is doing good but when asked about her back she says it isn't so good. She continues to have pain to the surgical area and describes it as a pulling sensation. She reports a small area of left thigh numbness and that her toes also went numb when sitting up in the chair. She has no pain radiating into the lower extremities. She is in the LSO brace. Upon examination the patient was tender to palpation of the midline and lateral lumbar region. She had numbness to the left thigh. Her motor strength was normal. Physical Therapy has evaluated the patient and recommends that she be discharged home with Home Health for further therapy and a front wheeled walker. Exam Results 11/05/17 11/05/17 11/06/17 11/06/17 11/07/17 11/07/17 06:00 18:00 06:00 18:00 06:00 18:00 Intake Total 2300 ml 650 ml 720 ml Output Total 680 ml 100 ml 4050 ml Balance 1620 ml 650 ml -100 ml -3330 ml Intake Oral 600 ml 720 ml IV Total 100 ml 50 ml Other 2200 ml Output Urine Total 500 ml 4050 ml Drainage Total 100 ml Estimated Blood Loss 180 ml # Voids 3 2 # Bowel Movements 0 0 Vital Signs Date Time Temp Pulse Resp B/P (MAP) Pulse Ox O2 Delivery O2 Flow Rate FiO2 11/07/17 12:00 97.6 67 17 106/58 (74) 95 11/07/17 08:00 98.4 72 17 113/56 (75) 97 11/07/17 07:42 16 11/07/17 06:00 16 11/07/17 04:15 97.6 69 17 100/57 (71) 95 11/07/17 00:05 97.3 70 17 109/57 (74) 98 11/06/17 20:15 97.7 74 17 132/62 (85) 94 11/06/17 18:00 18 11/06/17 16:00 97.9 70 18 124/66 (85) 98 11/06/17 14:00 18 11/06/17 13:05 18 11/06/17 12:00 97.7 81 18 114/56 (75) 95 11/06/17 08:00 97.4 78 20 122/58 (79) 95 11/06/17 06:00 16 11/06/17 04:39 16 11/06/17 04:00 97.9 84 20 121/59 (79) 98 11/06/17 00:00 97.9 89 18 117/60 (79) 95 11/05/17 22:00 16 11/05/17 22:00 16 11/05/17 20:29 16 11/05/17 17:00 98.4 91 18 109/56 (73) 96 11/05/17 16:27 97.2 85 17 157/74 (101) 99 11/05/17 14:28 97.4 73 15 149/72 (97) 99 Nasal Cannula 3 11/05/17 14:15 74 15 132/60 (84) 99 Nasal Cannula 3 11/05/17 14:14 15 11/05/17 14:00 76 16 134/65 (88) 99 Nasal Cannula 3 11/05/17 13:45 82 17 130/58 (82) 95 Nasal Cannula 3 11/05/17 13:30 80 17 142/63 (89) 95 Nasal Cannula 3 11/05/17 13:15 77 15 138/64 (88) 100 Nasal Cannula 3 11/05/17 13:10 97.9 83 15 132/66 (88) 100 Nasal Cannula 4 11/05/17 07:43 97.0 73 16 129/83 (98) 98 Physical Examination GENERAL: Awake & alert in bed visiting w/her family & watching TV. Her affect is normal & she readily interacts. She appears comfortable & not in any distress. HEENT: Normocephalic, atraumatic. MUSCULOSKELETAL: In LSO brace. TAYLOR spontaneously & purposefully. Midline lumbar spine TTP and more so to lateral surgical incisions, the dressing is intact and has 3 areas of shadowing to it, the MAKENNA drain is to bulb suction w/ serosanguinous drainage. NEUROLOGICAL: AAOx3. Speech clear & appropriate. Follows simple commands w/o difficulty. Sensation decreased to the mid left anterolateral thigh, o/w intact to light touch to the lower extremities. Motor strength is 5/5 to all major flexion & extension muscle groups of the lower extremities. She does have some referred low back pain w/testing. Lab, Micro, Other Results Recent Impressions Lumbar Spine X-Ray 11/05/17 0000 Signed Impressions: CONCLUSION: Lumbar fusion at L4-5 as above. Laboratory Tests Test 11/06/17 06:00 White Blood Count 12.9 TH/MM3 Red Blood Count 3.46 MIL/MM3 Hemoglobin 11.0 GM/DL Hematocrit 32.9 % Mean Corpuscular Volume 95.0 FL Mean Corpuscular Hemoglobin 31.7 PG Mean Corpuscular Hemoglobin Concent 33.4 % Red Cell Distribution Width 14.2 % Platelet Count 205 TH/MM3 Mean Platelet Volume 10.3 FL Neutrophils (%) (Auto) 83.6 % Lymphocytes (%) (Auto) 8.1 % Monocytes (%) (Auto) 8.2 % Eosinophils (%) (Auto) 0.0 % Basophils (%) (Auto) 0.1 % Neutrophils # (Auto) 10.8 TH/MM3 Lymphocytes # (Auto) 1.0 TH/MM3 Monocytes # (Auto) 1.1 TH/MM3 Eosinophils # (Auto) 0.0 TH/MM3 Basophils # (Auto) 0.0 TH/MM3 CBC Comment DIFF FINAL Differential Comment Blood Urea Nitrogen 14 MG/DL Creatinine 1.05 MG/DL Random Glucose 112 MG/DL Calcium Level 8.2 MG/DL Sodium Level 141 MEQ/L Potassium Level 4.2 MEQ/L Chloride Level 104 MEQ/L Carbon Dioxide Level 28.5 MEQ/L Anion Gap 9 MEQ/L Estimat Glomerular Filtration Rate 54 ML/MIN Medical Decision Making Impression and Plan Impression: L4-5 spondylolisthesis S/p L4-5 PLIF The patient is doing well. She has pain to the surgical incisions as well as some to the midline lumbar spine. Area of left anterolateral thigh numbness. Muscle strength normal. MAKENNA drain output of 100 mL drainage for the past 24 hrs as of shift change this morning. Plan: Medical management per Hospitalist. Neuro checks q4h. VS q4h. LSO brace when OOB. Mobilise patient w/assistance. Physical Therapy eval & tx. Turn patient q2h, keep patient from laying on surgical incision. Keep Optifoam dressing in place x7d, if saturated replace w/same. Monitor MAKENNA drain output, will d/c when 30 mL or below/shift. D/c Isidoro. Moris Pfeiffer [employer] DIRECT[employer] November 07, 2017 15:13
[2017-11-07] MEDS ORDERED: WALKER WHEELS/F1 MIS (15:37)
--- NOTE | 2017-11-07 15:40 | HHI.FF ---
Face to Face Verification Diagnosis: (1) Fusion of lumbar spine (2) Spondylolisthesis at L4-L5 level Physical Therapy Order: Evaluate and Treat Occupational Therapy Order: Evaluate and Treat I have seen patient Dayanna Linder on 11/07/17. My clinical findings support the need for the requested home health care services because: Deconditioned w/ increased weakness Limited ability to care for self High risk of falls I certify that my clinical findings support that this patient is homebound because: Post-op weakness Unsteady gait/balance Unsafe to leave home unassisted Moris Pfeiffer [facility] November 07, 2017 15:40
[2017-11-07 16:00] VITALS: BP 111/54; PULSE 72; RESP 17; TEMP 97.8; O2SAT 95
[2017-11-07 20:35] VITALS: BP 144/69; PULSE 70; RESP 17; TEMP 97.5; O2SAT 97
[2017-11-07] MEDS: CHLORHEXIDINE GLUCONATE 4% SOLN 120 ML BTL TOP SCH (21:00)
[2017-11-07] MEDS ORDERED: PRED5TAB PO (22:49)
[2017-11-08] VITALS: BP 117/55; PULSE 70; RESP 17; TEMP 98.1; O2SAT 94
[2017-11-08] MEDS: SODIUM CHLOR 0.9% 1000 ML INJ 1,000 ML IV SCH ×3 (02:00→22:00)
[2017-11-08] MEDS: ACETAMINOPHEN/HYDROcodone 325 MG/10 MG TAB PO PRN ×4 (02:43→18:00)
[2017-11-08 04:00] VITALS: BP 110/53; PULSE 69; RESP 18; TEMP 97.9; O2SAT 95
[2017-11-08] MEDS: HYOSCYAMINE 0.125 MG TAB PO SCH ×3 (04:40→17:55)
[2017-11-08] MEDS: CYCLOBENZAPRINE HCL 10 MG TAB PO PRN ×2 (04:40→22:22)
[2017-11-08] MEDS: HYDROmorphone HCL PCA 6 MG/30 ML IV SCH ×2 (05:39→16:08)
[2017-11-08] MEDS: PCA - TOTAL MG DILAUDID DELIVERED PER SHIFT SCH ×3 (05:44→22:25)
[2017-11-08 08:00] VITALS: BP 103/61; PULSE 63; RESP 18; TEMP 97.7; O2SAT 92
[2017-11-08] MEDS: INSULIN ASPART SUPPLEMENTAL SCALE SQ SCH ×4 (08:00→21:00)
[2017-11-08] MEDS: FOLIC ACID 1 MG TAB PO SCH (08:10)
[2017-11-08] MEDS: DOCUSATE SODIUM 100 MG CAP PO SCH ×2 (08:10→20:50)
[2017-11-08] MEDS: ATENOLOL 50 MG TAB PO SCH ×2 (08:11→20:50)
[2017-11-08] MEDS: PANTOPRAZOLE SOD 40 MG DELAYED RELEASE TAB PO SCH (08:11)
[2017-11-08] MEDS: ENALAPRIL MALEATE 10 MG TAB PO SCH (08:12)
[2017-11-08] MEDS: HYDROCHLOROTHIAZIDE 25 MG TAB PO SCH (08:12)
[2017-11-08] MEDS: predniSONE 20 MG TAB PO SCH (08:39)
[2017-11-08 12:00] VITALS: BP 102/63; PULSE 65; RESP 18; TEMP 98; O2SAT 96
--- NOTE | 2017-11-08 13:03 | HHI.NSPN ---
History Chief Complaint: Back pain at surgical sites. Interval History 11/05: Patient presented to [facility] to have an L4-5 laminectomy with interbody arthrodhesis using a PEEK cage, instrumental fixation using transpedicular screws and rods,and posterolateral fusion using bone graft and rods. Post-operatively the patient was admitted to a regular med/surg floor. 11/06: This afternoon the patient is awake and alert when seen. She is laying in bed with the LSO brace on. She says that she does have low back pain that is a little better than yesterday. She reports not being able to lift her pelvis/ hips off the bed. She denies any pain, numbness or tingling to the lower extremities. She has no sensorimotor deficits noted upon examination but she does have tenderness just above the anterior ankles bilaterally. Her midline lower lumbar spine is tender to palpation. She does say she has stood once but not ambulated. 11/07: When seen this afternoon the patient is awake in bed watching TV and visiting with her family. She states that she is doing good but when asked about her back she says it isn't so good. She continues to have pain to the surgical area and describes it as a pulling sensation. She reports a small area of left thigh numbness and that her toes also went numb when sitting up in the chair. She has no pain radiating into the lower extremities. She is in the LSO brace. Upon examination the patient was tender to palpation of the midline and lateral lumbar region. She had numbness to the left thigh. Her motor strength was normal. Physical Therapy has evaluated the patient and recommends that she be discharged home with Home Health for further therapy and a front wheeled walker. 11/08: Pt awake and alert. Complains of constipation and had a BM today but states she had to strain. She states she is sore in her back. She has some discomfort into the left buttocks and left anterior thigh superior aspect with numbness. She states she ambulates with walker. She is very painful when going from sitting to standing position. She is on a Dilaudid BUTCHER MEAT and is very painful. She states she has psoriatic arthritis and is normally on multiple anti inflammatory medications. Review of Systems General: Negative for: fever, chills, insomnia Respiratory: Negative for: shortness of breath, cough, sputum Cardiovascular: Negative for: chest pain Gastrointestinal: Negative for: nausea, vomitting, diarrhea, constipation Exam Results Vital Signs Date Time Temp Pulse Resp B/P (MAP) Pulse Ox O2 Delivery O2 Flow Rate FiO2 11/08/17 08:00 97.7 63 18 103/61 (75) 92 11/07/17 19:23 Room Air 11/05/17 14:28 3 Intake and Output 11/08/17 11/08/17 11/09/17 08:00 16:00 00:00 Intake Total 410 ml Output Total 20 ml Balance 390 ml Physical Examination GENERAL: Awake & alert in bed visiting w/her family. Her affect is normal & she readily interacts. HEENT: Normocephalic, atraumatic. RESP: CTA bilaterally HEART: NSR no murmurs MUSCULOSKELETAL: sitting up in chair with LSO brace. TAYLOR spontaneously & purposefully. Moves LEs with 5/5 strength. NEUROLOGICAL: AAOx3. Speech clear & appropriate. Follows simple commands w/o difficulty. Sensation decreased to the mid left anterolateral thigh, o/w intact to light touch to the lower extremities. Lab, Micro, Other Results Last Impressions Lumbar Spine X-Ray 11/05/17 0000 Signed Impressions: CONCLUSION: Lumbar fusion at L4-5 as above. Medical Decision Making Impression and Plan A: 57 y/o FM s/p L4/L5 PLIF. P: d/c MAKENNA drain place steristip at exit site. Recommended suppository for bm, also oral laxatives prn. Continue with pain control discussed with pt side effects of Dilaudid is constipation she states she is using it for pain. Will d/c BUTCHER MEAT tomorrow am. Daniel Alvares November 08, 2017 1:03 pm
[2017-11-08] MEDS: ONDANSETRON ODT 4 MG TAB PO PRN (13:27)
[2017-11-08 16:00] VITALS: BP 110/58; PULSE 69; RESP 18; TEMP 98; O2SAT 94
[2017-11-08 20:00] VITALS: BP 107/60; PULSE 73; RESP 18; TEMP 97.8; O2SAT 97
[2017-11-08] MEDS: TEMAZEPAM 15 MG CAP PO PRN (22:22)
[2017-11-09] VITALS: BP 106/59; PULSE 73; RESP 16; TEMP 97.4; O2SAT 98
[2017-11-09] MEDS: HYOSCYAMINE 0.125 MG TAB PO SCH ×2 (00:13→05:44)
[2017-11-09 04:00] VITALS: BP 120/56; PULSE 73; RESP 20; TEMP 98; O2SAT 97
[2017-11-09] MEDS: PCA - TOTAL MG DILAUDID DELIVERED PER SHIFT SCH (05:46)
[2017-11-09] MEDS: DOCUSATE SODIUM 100 MG CAP PO SCH (07:35)
[2017-11-09] MEDS: ATENOLOL 50 MG TAB PO SCH (07:35)
[2017-11-09] MEDS: HYDROCHLOROTHIAZIDE 25 MG TAB PO SCH (07:36)
[2017-11-09] MEDS: ENALAPRIL MALEATE 10 MG TAB PO SCH (07:36)
[2017-11-09] MEDS: FOLIC ACID 1 MG TAB PO SCH (07:36)
[2017-11-09] MEDS: PANTOPRAZOLE SOD 40 MG DELAYED RELEASE TAB PO SCH (07:36)
[2017-11-09] MEDS: CYCLOBENZAPRINE HCL 10 MG TAB PO PRN (07:36)
[2017-11-09] MEDS: ACETAMINOPHEN/HYDROcodone 325 MG/10 MG TAB PO PRN ×2 (07:37→11:19)
[2017-11-09 08:00] VITALS: BP 137/60; PULSE 79; RESP 16; TEMP 98.3; O2SAT 94
[2017-11-09] MEDS: SODIUM CHLOR 0.9% 1000 ML INJ 1,000 ML IV SCH (08:00)
[2017-11-09] MEDS: INSULIN ASPART SUPPLEMENTAL SCALE SQ SCH (08:00)
[2017-11-09] MEDS: predniSONE 20 MG TAB PO SCH (08:29)
[2017-11-09] MEDS ORDERED: KETOROLAC TROMETHAMINE 60 MG/2 ML (IM) VIAL IM ONE (09:15)
[2017-11-09] MEDS ORDERED: KETOROLAC TROMETHAMINE 30 MG/ML (IVP) VIAL IV PUSH ONE (09:15)
--- NOTE | 2017-11-09 10:28 | RADRPT ---
EXAM DATE: 11/09/2017 10:20 AM EDT AGE/SEX: 57 years / Female INDICATIONS: Post L4-L5 laminectomy and fusion. CLINICAL DATA: This is the patient's subsequent encounter. Patient reports that signs and symptoms h ave been present for 4 - 6 days and indicates a pain score of 8/10. MEDICAL/SURGICAL HISTORY: None. None. [place]PAR[place] [facility] [place] [facility] ([place] & [place]), 11/05/2017. . FINDINGS: 4 views of the lumbar spine demonstrate 5 nonrib-bearing lumbar vertebral bodies. There is hardware p osteriorly at L4-L5 consisting of bilateral pedicular screws and vertical stabilization rods. Hardwar e demonstrates no finding to indicate failure or loosening. Material is also present at the L4-L5 dis c space. There is stable minimal anterolisthesis of L4 on L5. Facet hypertrophy is present at L4-L5 a nd L5-S1. Vertebral body heights are maintained. Endplate osteophytes are present at multiple levels. The pelvic bones and soft tissues demonstrate no acute finding. There is atherosclerotic disease of t he abdominal aorta. Cholecystectomy clips are present. CONCLUSION: No acute lumbar spine abnormality is identified. There has been prior surgery at L4-L5 and hardware d emonstrates no acute finding. There is stable minimal anterolisthesis at L4-L5 with facet hypertrophy at L4-L5 and L5-S1. Electronically signed by: Edison Prasad MD 11/09/2017 10:27 AM EDT
--- NOTE | 2017-11-09 10:44 | HHI.DCPOC ---
Discharge Care Plan Diagnosis: (1) Fusion of lumbar spine Goals to Promote Your Health * To prevent worsening of your condition and complications * To maintain your health at the optimal level Directions to Meet Your Goals Take your medications as prescribed Follow your dietary instruction Follow activity as directed Keep your appointments as scheduled Take your immunizations and boosters as scheduled If your symptoms worsen call your PCP, if no PCP go to Urgent Care Center or Emergency Room Smoking is Dangerous to Your Health. Avoid second hand smoke Call the 24-hour hour crisis hotline for domestic abuse at Isela Patterson November 09, 2017 10:44
--- NOTE | 2017-11-09 11:05 | HHI.DS ---
Discharge Summary Admission Date November 05, 2017 at 06:41 Discharge Date: November 09, 2017 Admitting Diagnosis s/p PLIF (1) Spondylolisthesis at L4-L5 level ICD Code: M43.16 - Spondylolisthesis, lumbar region (2) Hypertension ICD Code: I10 - Essential (primary) hypertension (3) Psoriatic arthropathy ICD Code: L40.50 - Arthropathic psoriasis, unspecified (4) GERD (gastroesophageal reflux disease) ICD Code: K21.9 - Gastro-esophageal reflux disease without esophagitis Brief History Ms Linder is a 57 year-old female who presented with intractable mechanical back pain and luz evidence of L5 lower extremity radiculopathy. She failed maximum nonsurgical management including multiple modalities of conservative treatment as well as pain management interventions by an interventional pain specialist. A surgical decompression and arthrodesis were indicated as a last resort. CBC/BMP: 11/06/17 0600 11/06/17 0600 Imaging Last Impressions Lumbar Spine X-Ray 11/09/17 0000 Signed Impressions: CONCLUSION: No acute lumbar spine abnormality is identified. There has been prior surgery a t L4-L5 and hardware demonstrates no acute finding. There is stable minimal ant erolisthesis at L4-L5 with facet hypertrophy at L4-L5 and L5-S1. Hospital Course Ms. Linder underwent L4-5 laminectomy, interbody arthrodesis using PEEK cage and autologous bone graft, L4-5 instrumental fixation using transpedicular screws and rods, L4-5 posterolateral fusion using autologous bone graft and rods, microsurgical dissection on November 05, 2017 for L4-5 spondylolisthesis. Her postoperative pain was managed with [employer], dc'ed on POD 4. Postoperative xrays obtained which showed no postsurgical complications. PT eval recs PT at home. Patient was discharged home with [facility] PT. Pt Condition on Discharge: Stable Discharge Disposition: Disch w/ Home Health Serv Discharge Instructions DIET: Follow Instructions for: Heart Healthy Diet ACTIVITIES You can perform: Weight Bearing As Monet ADDITIONAL Activity Instructio: Avoid strenuous activities, heavy lifting over 5 lbs, overhead activities, repetitive bending, twisting, pushing, pulling or any activities which might result in stress over the spine. Avoid situation that will put at risk for falls. Use assistive device as needed for walking. Wear provided back brace when out of bed New Medications: Walker with Front Wheels (Walker with Front Wheels) 1 Mis Mis EA .XX DIRECTED, #1 0 Refills Hydrocodone/Acetaminophen (Hydrocodone-Acetamin 10-325 mg) 10 Mg-325 Mg Tablet 1 TAB PO Q4H PRN for PAIN SCALE 1 TO 10, #40 TAB-CAP 0 Refills Continued Medications: Alprazolam (Alprazolam) 0.5 Mg Tab 0.5 MG PO Q6H PRN for ANXIETY, TAB 0 Refills Atenolol (Atenolol) 50 Mg Tab 50 MG PO BID for Blood Pressure Management, #60 TAB 0 Refills Cyclobenzaprine (Flexeril) 10 Mg Tab 10 MG PO TID for Muscle Spasm, #90 TAB 0 Refills Enalapril (Enalapril) 20 Mg Tab 20 MG PO DAILY, #30 TAB 0 Refills Etanercept PF Inj (Enbrel PF Inj) 50 mg/ml Syr 50 MG SQ Q7D, #4 SYRINGE 0 Refills Hydrochlorothiazide (Hydrochlorothiazide) 25 Mg Tab 25 MG PO DAILY, #30 TAB 0 Refills Hyoscyamine (Hyoscyamine) 0.125 Mg Tab 0.125 MG PO Q6H for Gastrointestinal disorders, TAB 0 Refills Meloxicam (Meloxicam) 15 Mg Tab 15 MG PO DAILY for Arthritis Pain, #30 TAB 0 Refills Methotrexate (Methotrexate) 2.5 Mg Tab 2.5 MG PO Q7D, TAB 0 Refills Oxycodone-Acetaminophen (Oxycodone-Acetaminophen) 10-325 mg Tab 1 TAB PO Q4H PRN for PAIN, TAB 0 Refills Pantoprazole (Pantoprazole) 40 Mg Tab 40 MG PO DAILY for Reflux, #30 TAB 0 Refills Prednisone (Prednisone) 20 Mg Tab 20 MG PO DAILY, TAB 0 Refills Temazepam (Temazepam) 30 Mg Cap 30 MG PO HS PRN for INSOMNIA, #30 CAP 0 Refills Tramadol (Tramadol) 50 Mg Tab 50 MG PO Q6H PRN for PAIN, TAB 0 Refills Isela Patterson November 09, 2017 11:05
[2017-11-09] MEDS ORDERED: GABAPENTIN 300 MG CAP PO SCH (13:00)
== END 2017-11-09 12:08 | DRG 460 ==
LOC: HSDI 06:41 → N06B 14:45
PROVIDERS: ADMIT Neurological Surgery; ATTEND Neurological Surgery
PROC: 0SB20ZZ Excision of Lumbar Vertebral Disc, Open Approach (ICD-10-PCS; 2017-11-05)
PROC: 0QB33ZZ Excision of Left Pelvic Bone, Percutaneous Approach (ICD-10-PCS; 2017-11-05)
PROC: 0SG00AJ Fusion of Lumbar Vertebral Joint with Interbody Fusion Device, Posterior Approach, Anterior Column, Open Approach (ICD-10-PCS; principal; 2017-11-05 08:25)
DX: M43.16 Spondylolisthesis, lumbar region (principal); L40.50 Arthropathic psoriasis, unspecified; I10 Essential (primary) hypertension; M54.16 Radiculopathy, lumbar region; K21.9 Gastro-esophageal reflux disease without esophagitis; M10.9 Gout, unspecified; Z87.891 Personal history of nicotine dependence; Z79.899 Other long term (current) drug therapy; D72.829 Elevated white blood cell count, unspecified
CPT/HCPCS: 72100; 76000; 76937; 80048; 82948; 85025; 86850; 86900; 86901; 87640; 87641; C1713; J0131; J0690; J1170; J1580; J1885; J2250; J2270; J2370; J2405; J2930; J3010; J3370; J7030; J7120; J8501; L0484